=== PATIENT | female | born 1930 | race Caucasian/White ===

== ENCOUNTER 2016-08-02 09:11 | Inpatient (IN) ==
[2016-08-02] MEDS ORDERED: NS 1,000 ML IV ONE (09:38)
[2016-08-02 09:46] LABS: MANUAL DIFF NEEDED? NO
[2016-08-02 09:49] LABS: BASO% 0.1 % (0.0-0.8); EOS# 0.02 X1000 (0.0-0.7); EOS% 0.2 % (0.0-10.0); HEMOGLOBIN 11.8 g/dL (12.0-16.0); IMM GRAN# 0.02 X1000 (0.0-0.04); IMM GRAN% 0.2 % (0.0-0.5); LYMPH% 15.8 % (20.5-51.1); MCH 33.1 PG (27-31); MCHC 33.7 g/dL (33-37); MCV 98.3 FL (81-99); MONO# 0.85 X1000 (0.11-0.59); MONO% 10.3 % (1.7-9.3); MPV 12.7 FL (7.4-10.4); NEUT% 73.4 % (42.2-75.2); PLT 196 X1000 (130-400); RBC 3.56 XMIL (4.2-5.4)
[2016-08-02 10:14] LABS: POTASSIUM 3.7 mmol/L (3.5-5.1); TOTAL BILIRUBIN 0.42 mg/dL (0.20-1.00); TOTAL PROTEIN 7.2 g/dL (6.3-8.3)
--- NOTE | 2016-08-02 10:36 | Diag Imaging Result Document ---
PROCEDURE NAME: CHEST-PORTABLE - 08/02/2016 PORTABLE CHEST X-RAY: COMPARISON: 07/22/2015. FINDINGS: Stable borderline cardiomegaly. Stable calcified granuloma in the left lung base. There is some linear infiltrate or atelectasis in the right lung apex. Otherwise, no infiltrates. IMPRESSION: Improved lung volumes. Linear atelectasis or infiltrate in the right apex. No significant change from prior.
[2016-08-02 10:43] LABS: URINE SOURCE CATH
[2016-08-02 10:48] LABS: BILIRUBIN URINE NEGATIVE (NEGATIVE); BLOOD URINE MODERATE (NEGATIVE); GLUCOSE URINE NEGATIVE (NEGATIVE); LEUKOCYTES URINE LARGE (NEGATIVE); NITRITE URINE NEGATIVE (NEGATIVE); PROTEIN URINE 300 mg/dL (NEGATIVE); SP GRAVITY URINE 1.014; TURBIDITY URINE TURBID (CLEAR); UROBILINOGEN URINE NORMAL (NORMAL)
[2016-08-02 10:59] LABS: UR EPITHELIAL CELLS <10 /HPF (<10); URINE BACTERIA 4+ /HPF; URINE MICRO REVIEW NEEDED? YES; URINE RBC TNTC /HPF (<10); URINE WBC TNTC /HPF (<10)
[2016-08-02 11:04] LABS: UR AMPHETAMINES QUAL NONE DETECTED (NONE DETECT); UR BARBITUATES QUAL NONE DETECTED (NONE DETECT); UR BENZODIAZEPIN QUAL NONE DETECTED (NONE DETECT); UR CANNABINOIDS QUAL NONE DETECTED (NONE DETECT); UR COCAINE QUAL NONE DETECTED (NONE DETECT); UR METHADONE QUAL NONE DETECTED (NONE DETECT); UR OPIATES QUAL NONE DETECTED (NONE DETECT); UR OXYCODONE QUAL NONE DETECTED (NONE DETECT); UR PCP QUAL NONE DETECTED (NONE DETECT)
[2016-08-02] MEDS ORDERED: NS 500 ML IV ONE (11:18)
[2016-08-02 11:20] LABS: COLOR YELLOW
[2016-08-02 11:21] LABS: URINE CASTS NONE SEEN; URINE CRYSTALS NONE SEEN; URINE SMALL ROUND CELLS NONE SEEN
[2016-08-02 11:22] LABS: URINE CULTURE NEEDED? YES
[2016-08-02] MEDS ORDERED: ZOFRAN IV PRN (11:29)
[2016-08-02] MEDS ORDERED: DILAUDID IM PRN (11:29)
--- NOTE | 2016-08-02 11:32 | PROVIDER DOCUMENTATION ---
This chart was entered by Riddhi Juan Scribe, acting as scribe for Gaby Alcazar MD. HPI-General Adult - General Chief Complaint: Weakness Stated Complaint: failure to thrive Time Seen by Provider: 08/02/16 09:34 Source: patient Allergies/Adverse Reactions: Patient Allergies Allergy/AdvReac Type Severity Reaction Status Date / Time No Known Allergies Allergy Verified 08/02/16 11:25 Home Medications: Home Medication List Medication Instructions Recorded Confirmed Last Taken Type Anastrozole 1 mg PO DAILY 06/19/15 12/25/15 08/10/15 07:00 History Carvedilol 3.125 mg PO BID 07/07/15 12/25/15 08/10/15 07:00 History Dexlansoprazole [Dexilant] 60 mg PO DAILY 07/07/15 12/25/15 08/10/15 07:00 History Clonidine [Catapres] 0.1 mg PO DAILY 12/25/15 12/25/15 Unknown History Promethazine [Phenergan] 25 mg PO DAILY 12/25/15 12/25/15 Unknown History Losartan Potassium 50 mg PO BID 08/02/16 08/02/16 Unknown History Meclizine [Antivert] 12.5 mg PO DAILY 08/02/16 08/02/16 Unknown History - History of Present Illness -Gen Adult Nature of Presenting Problems: 85 y/o F presents to ED per EMS. 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 States on July 21 has stopped giving to pt to get her off them. Pt was prescribed Clonidine 0.1mg as needed for pt anxiety. States did well for couple days after but the past 3 days pt has increasingly got worse with altered mental status/confusion/ not eating. Also complains of strong urine smell poss UTI. Pt does have hx of Dementia. Denies N/V. Location of Pain/Injury: reports: none Pain Radiation: reports: no radiation Quality of Pain: reports: none Severity: reports: mild Onset/Duration: reports: just prior to arrival Timing: reports: still present Context/Activities at Onset: reports: light activity Associated Symptoms: reports: other (AMS/CONFUSION/NOT EATING). denies: chest pain, cough, fever/chills, sinus congestion/drainage, nausea, shortness of breath, vomiting Similar Symptoms Previously?: No Recently seen or treated by another doctor?: Yes Review of Systems - Adult - REVIEW OF SYSTEMS - ADULT ROS:: ROS per family Constitutional: reports: other (decreased appetite). denies: chills, fever Ears, Nose, Mouth & Throat: denies: ear pain, throat pain Cardiovascular: denies: chest pain, palpitations Respiratory: denies: cough, shortness of breath Gastrointestinal: denies: abdominal pain, diarrhea, nausea, vomiting Genitourinary: reports: other (stong smelling urine). denies: incontinence Musculoskeletal: denies: bone pain, back pain Neurological: reports: other (ams/confusion). denies: dizziness/vertigo, headache/migraines, syncope Past History - Adult - PAST MEDICAL HISTORY-ADULT Review of Records: reports: Old Records Reviewed, Nursing Assessment Review Major Childhood Illnesses: reports: denies history Cardiovascular: reports: cardiac disease, HTN Respiratory: reports: COPD Gastrointestinal: reports: GERD Obstetrical/Gynecological: reports: denies history Musculoskeletal: Neurological: reports: dementia Endocrine/Immune: reports: denies history Other Conditions: reports: denies history - PRIOR SURGERIES/PROCEDURES Surgical/Procedure History: reports: appendectomy, cholecystectomy, hysterectomy - PRIOR HOSPITALIZATIONS Prior Hospitalizations: reports: none - IMMUNIZATION STATUS Childhood Immunizations: See Nurse Assessment Flu Vaccine: See Nurse Assessment - FAMILY HISTORY Family History: CAD over 55 yo, HTN - SOCIAL HISTORY Smoking: non-smoker Substance Use: denies Physical Exam-General - CONSTITUTIONAL General Appearance: thin, slow to respond, other (altered) - EYES Eyes: pink conjunctivae - HEAD, EARS, NOSE, MOUTH & THROAT HENMT: normocephalic/atraumatic, other (dry mucous membranes) - RESPIRATORY Respiratory: chest non-tender, lungs clear, normal breath sounds - CARDIOVASCULAR Cardiovascular: normal peripheral pulses, regular rate, rhythm, no edema - GASTROINTESTINAL (ABDOMEN) Abdominal Exam: normal bowel sounds, non tender, soft - MUSCULOSKELETAL Back Exam: normal inspection, no CVA tenderness, no vertebral tenderness Extremity: normal range of motion, non-tender - SKIN Integumentary: normal color, normal turgor, warm/dry - NEUROLOGIC Neurologic: grossly normal Progress - PLAN OF CARE/RESULTS Progress/Plan/Lab Results: Vital Signs - 8 hr 08/02/16 09:33 Temperature 97.6 F Pulse Rate 83 Respiratory Rate 18 Blood Pressure 113/77 O2 Sat by Pulse Oximetry 96 Orders Category Date Time Status CHEST-PORTABLE [RAD] Stat Exams 08/02/16 09:37 Ordered CBC WITH ELECTRONIC DIFF [HEME] Stat Lab 08/02/16 09:18 Received CMP [COMPREHENSIVE METABOLIC PANEL] [CHEM] Stat Lab 08/02/16 09:43 Ordered URINALYSIS W/POSS RFLX CULT [URINALYSIS] Stat Lab 08/02/16 09:36 Uncollected URINE DRUG SCREEN Stat Lab 08/02/16 09:36 Uncollected 0.9% Sodium Chloride Inj [Ns] 1,000 ml Med 08/02/16 09:38 Active IV 150 mls/hr PLAN: LABS, CHEST XRAY, URINE, FLUIDS, MONITOR PT Result Diagrams: 08/02/16 09:18 08/02/16 09:18 - XRAY 1 XRAY: Bilateral XRAY Study: Chest Impression: Abnormal (Improved lung volumes. linear atelectasis or inflitrate in right apex, no change) XRAY Interpretation: see impression- (radiologist) - CONSULTS/PCP/HOSPITALIST Notification #1 *Consult/PCP/Hospitalist*: (pcp) Time Discussed: 11:25 Consult Disposition: Admit Departure - Departure Time of Disposition Decision: 11:27 DIAGNOSIS: Dehydration Acute renal failure Qualifiers: Acute renal failure type: unspecified Qualified Code(s): N17.9 - Acute kidney failure, unspecified Disposition: ADMITTED INPATIENT 09 Certified Medical Emergency: Emergent Condition: Stable This chart was documented by the indicated scribe, (Riddhi Juan Scribe) and accurately reflects the services I performed and decisions made by me, Gaby Alcazar MD, as attested by the provider's signature.
[2016-08-02] MEDS ORDERED: LEVAQUIN 750 MG/D5W 750 MG/150 ML IVPB IV ONE (11:33)
[2016-08-02 11:51] LABS: ALLEN TEST YES; BE -11.2 mmoll (-3.0-3.0); BLOOD TYPE ARTERIAL; DRAW SITE R RADIAL; METHB 2.2 % (0.0-1.5); MODALITY ROOM AIR; O2(CT) 14.2 mL/dL (15.0-23.0); PCO2(98.6) 25 mmHg (35-45); PO2(98.6) 77 mmHg (60-100); SAMPLE BLOOD; SAO2 97.4 % (95.0-100.0); THB 10.7 g/dL (11.5-17.4); pH(98.6) 7.33 (7.35-7.45)
[2016-08-02] MEDS: NS 1,000 ML IV SCH (16:30)
[2016-08-02] MEDS: TYLENOL PO PRN ×2 (16:39→22:43)
--- NOTE | 2016-08-02 21:53 | HISTORY AND PHYSICAL ---
CHIEF COMPLAINT: 1. Altered mental status. 2. Confusion. 3. Not eating. HISTORY OF PRESENT ILLNESS: She is an 85-year-old white female, who apparently was not taking the hydrocodone since July 21 by . Since then, patient has been acting weird, confused, not eating, disheveled. The reason was not clear why Dr. Hayes stopped giving the pain medications. Apparently the patient was given Butrans 10 mcg/hour patch every week on 07/20/2015. Somehow, family brought to the emergency room by ambulance. In the ER patient was seen by Dr. Alcazar. Patient was dehydrated, BUN 76, creatinine 4. Basically, admitted to the hospital for dehydration and further workup. Perry catheter was placed. She is making good urine. Complains of dysuria. She was also treated for UTI. As a result, the patient has been hospitalized. Chest x-ray was stable. PAST MEDICAL HISTORY: Breast cancer, stage I, left breast, lumpectomy, followed by chemo by Dr. Melgar. Closed fracture of C2. Cystocele. Dementia 20/30 by mini-mental examination. Esophageal reflux disease. Hyperlipidemia. Hypertension. Osteoporosis. Osteoarthritis. Vitamin B12 deficiency. PAST SURGICAL HISTORY: Cholecystectomy. Hysterectomy. Bilateral cataract surgery. Colon resection by Dr. Jenkins. Urethral stenosis, status post dilatation by Dr. Beach. MEDICATIONS: Anastrazole mg daily. Dexilant 40 mg daily. Coreg 3.125 p.o. b.i.d. Clonidine 0.1 daily. Phenergan 25 as needed. Losartan 50 p.o. b.i.d. Clonidine as needed. Linzess 145 mcg daily. Aricept 5 mg daily. Blakely used to be by Dr. Hayes, which has been stopped. ALLERGIES: Norvasc. SOCIAL HISTORY: , 8 children. Lives in [place]. No smoking. No alcohol. No drug abuse. FAMILY HISTORY: Father of complication of broken hip. Mom of cancer of stomach. HEALTH MAINTENANCE: Flu vaccine 2015, pneumococcal 2009, mammography 2014, last colonoscopy 2011. Last mammography 05/31/2016. REVIEW OF SYSTEMS: HEENT: Patient is totally confused, but denies any headache or dizziness. Neck: No neck pain. Cardiopulmonary: No chest pain, shortness of breath, PND , orthopnea. GI: No nausea, vomiting, abdominal pain. Complains of lower abdominal pain, dysuria. Extremities: No swelling of feet. Neurologic: No obvious weakness or seizures. PHYSICAL EXAMINATION: VITAL SIGNS: Temperature 97 degrees, pulse is 80, respirations 87, blood pressure is 127/75. 5 feet 2. 131 pounds. HEENT: Atraumatic, normocephalic. Pupils equal, reactive to light. TMs are normal. Nose and throat within normal limits. NECK: Supple. No lymphadenopathy. No goiter. CHEST: Bilateral air entry. No rales, no wheezing. HEART: Sounds are regular. ABDOMEN: Belly is soft, nontender. Good bowel sounds. No masses palpable. EXTREMITIES: No peripheral edema, cyanosis, clubbing. NEUROLOGICAL: No neurological deficits. INVESTIGATIONS: CBC: White cell count 8.2, hematocrit 35, platelets 196,000. ABG: PH is 7.33, pCO2 25, PO2 77. SMA7: Sodium 137, potassium 3.7, chloride 96, BUN 76, creatinine 4, glucose 108. Urinalysis positive for infection. Urine toxic screen is negative. Chest x-ray was negative. ASSESSMENT AND PLAN: 1. An 85-year-old white female, admitted to the hospital with acute metabolic encephalopathy due to dehydration and urinary tract infection. Plan is IV Levaquin 250 once a day. Perry catheter. IV fluids. Ultrasound of the renals. Follow up on complete blood count and basic metabolic panel. 2. Deep venous thrombosis and gastrointestinal prophylaxis with Lovenox and Protonix. 3. Dementia, on Aricept 10. 4. Hypertension, on Coreg, clonidine and losartan. 5. Carcinoma of breast on left side, on anastrozole. 6. Slowly reconcile home medicines. Discussed with the family at bedside and follow up. cc: Rafy Herrera MD [facility]ay
[2016-08-03] MEDS ORDERED: ATIVAN IM ONE (01:49)
[2016-08-03] MEDS: NS 1,000 ML IV SCH (05:00)
[2016-08-03 07:06] LABS: MANUAL DIFF NEEDED? NO
[2016-08-03 07:08] LABS: BASO% 0.4 % (0.0-0.8); EOS# 0.06 X1000 (0.0-0.7); EOS% 0.9 % (0.0-10.0); HEMATOCRIT 31.6 % (37.0-47.0); HEMOGLOBIN 10.4 g/dL (12.0-16.0); LYMPH# 1.77 X1000 (1.2-3.4); LYMPH% 25.8 % (20.5-51.1); MCH 33.2 PG (27-31); MCHC 32.9 g/dL (33-37); MONO# 0.96 X1000 (0.11-0.59); MPV 12.1 FL (7.4-10.4); NEUT% 58.9 % (42.2-75.2); PLT 154 X1000 (130-400); RBC 3.13 XMIL (4.2-5.4)
[2016-08-03 07:22] LABS: CALCIUM 8.3 mg/dL (8.8-10.2); POTASSIUM 3.4 mmol/L (3.5-5.1)
--- NOTE | 2016-08-03 09:33 | PROGRESS NOTE ---
DATE: 08/03/2016 SUBJECTIVE: The patient was agitated, restless last night. There was no sleep. Patient subsequently was given lorazepam 0.5 mg one dose. She has been sleeping at this time. She is very belligerent and agitated. REVIEW OF SYSTEMS: The patient is sleeping. Unable to obtain. Discussed with the family at the bedside. Apparently, she was seen by Dr. Parmar on 07/19/2016. He discontinued Durant, changed to Butrans patch. Subsequently the insurance did not pay the medication. OBJECTIVE: Vital Signs: On examination, she is afebrile and blood pressure is 128/64, 100% oxygen. She is sleeping. Chest: Clear. Heart: Sounds are regular. Abdomen: Belly is soft, nontender. Extremities: No peripheral edema, cyanosis, clubbing. INVESTIGATIONS: CBC: White cell count 6.8, hematocrit 31, MCV 101, platelet 154. SMA-7: Sodium 142, potassium 3.4, chloride 109, BUN 62, creatinine 2.6, calcium 8.3. MICROBIOLOGY: Culture is showing gram-negative rods. ASSESSMENT AND PLAN: 1. An 85-year-old white female, admitted to the hospital with altered mental status due to metabolic encephalopathy, probably withdrawal from pain medications. We will use judiciously. 2. Agitation. Ativan as needed. 3. Gastrointestinal prophylaxis with intravenous Protonix. 4. Deep vein thrombosis prophylaxis with subcutaneous Lovenox. 5. Acute renal failure. Kidney injury. Probably dehydration. Continue on intravenous fluids. Ultrasound of the renals. She already had a Perry catheter placed. 6. Urinary tract infection. Follow up on culture and sensitivity. Currently on Levaquin 250 intravenous once a day. Discussed with the patient and the family about the care plan, and will keep her over the weekend. DOCUMENTATION TIME: 25 minutes. cc: Rafy Herrera MD
--- NOTE | 2016-08-03 11:21 | Diag Imaging Result Document ---
PROCEDURE NAME: US RENAL 2 (RETROPER) COMPLETE - 08/03/2016 RENAL ULTRASOUND: COMPARISON: 05/03/2015. FINDINGS: The left kidney is partially obscured as the patient cannot tolerate pressure from the probe. There are a couple of right renal cysts with the largest measuring up to 3.4 cm in the greatest dimension. There is also a 2.8 cm left renal cyst. The kidneys are grossly normal in echotexture, otherwise. No hydronephrosis or solid mass is identified. There is a Perry catheter in the urinary bladder and the bladder is only slightly distended. It is grossly unremarkable, otherwise. IMPRESSION: Bilateral simple-appearing renal cysts as described.
[2016-08-03] MEDS: POTASSIUM CHLORIDE 20 MEQ/SWI 20 MEQ/100 ML IVPB IV SCH ×2 (15:47→18:26)
[2016-08-03] MEDS: LOVENOX SUBQ SCH (20:10)
[2016-08-04] MEDS: NS 1,000 ML IV SCH ×2 (00:45→17:40)
[2016-08-04] MEDS: ATIVAN IV PRN ×3 (01:50→21:35)
[2016-08-04 07:37] LABS: MANUAL DIFF NEEDED? NO
[2016-08-04 07:44] LABS: BASO% 0.8 % (0.0-0.8); EOS% 3.2 % (0.0-10.0); HEMATOCRIT 31.5 % (37.0-47.0); HEMOGLOBIN 10.1 g/dL (12.0-16.0); IMM GRAN# 0.02 X1000 (0.0-0.04); IMM GRAN% 0.3 % (0.0-0.5); LYMPH# 1.83 X1000 (1.2-3.4); LYMPH% 29.5 % (20.5-51.1); MCH 33.2 PG (27-31); MCHC 32.1 g/dL (33-37); MCV 103.6 FL (81-99); MONO# 0.78 X1000 (0.11-0.59); MONO% 12.6 % (1.7-9.3); MPV 12.7 FL (7.4-10.4); NEUT% 53.6 % (42.2-75.2); PLT 144 X1000 (130-400); RBC 3.04 XMIL (4.2-5.4)
[2016-08-04 08:08] LABS: CALCIUM 9.3 mg/dL (8.8-10.2); POTASSIUM 4.2 mmol/L (3.5-5.1)
--- NOTE | 2016-08-04 11:46 | PROGRESS NOTE ---
DATE: 08/04/2016 SUBJECTIVE: The patient is alert. She is more conversant. Still somewhat demanding but overall more at herself and seems to be, I suspect, near her baseline. She is talking with her relatives who are in the room with her. She says she still feels bad overall. OBJECTIVE: Afebrile, pulse 90, respirations 17, blood pressure 131/64, O2 saturation is 97% to 98% on room air. Cardiovascular: Regular rate and rhythm. Lungs: CTA. Extremities: No calf tenderness, cords or edema. Neurologic: The patient is elderly, mildly confused, not combative, answers some questions, appears mildly demented. DIAGNOSTIC DATA: Microbiology shows urine culture growing out E. coli, intermediate sensitivity to the Levaquin she is on. It is sensitive to Macrobid. White count is 6.2, hemoglobin 10.1, platelets 144, neutrophils 53, lymphocytes 29. Sodium is 145, potassium 4.2, chloride 114, CO2 is 18, BUN is 53, creatinine 1.7, glucose 73, calcium 9.3 ASSESSMENT: 1. Mental status change, suspect multifactorial. Grew out urosepsis with dementia and metabolic encephalopathy associated with dehydration. 2. Acute kidney injury, thought related to dehydration. 3. Escherichia coli urinary tract infection. 4. Dementia, on Aricept. 5. Hypertension. 6. History of left-sided carcinoma of the breast. PLAN: At this time, again change Levaquin to Macrobid. Continue IV hydration, and she seems to be improving with that, with low dose p.r.n. Ativan as required. Continue Aricept, Coreg, clonidine, losartan. Continue Perry catheter and encourage p.o. intake. We will follow her labs. cc: MD Rafy Nicholson MD
[2016-08-04] MEDS: TYLENOL PO PRN (12:55)
[2016-08-04] MEDS: MACROBID PO SCH ×2 (12:57→21:35)
[2016-08-04] MEDS ORDERED: LEVAQUIN 250 MG/D5W 250 MG/50 ML IVPB IV SCH (14:00)
[2016-08-04] MEDS: DILAUDID IV PRN (16:31)
[2016-08-04] MEDS: COREG PO SCH (21:35)
[2016-08-04] MEDS: LOVENOX SUBQ SCH (21:35)
[2016-08-04] MEDS: COZAAR PO SCH (21:35)
[2016-08-05] MEDS: NS 1,000 ML IV SCH ×2 (02:10→15:36)
[2016-08-05 07:00] LABS: MANUAL DIFF NEEDED? NO
[2016-08-05 07:19] LABS: BASO% 1.1 % (0.0-0.8); EOS# 0.25 X1000 (0.0-0.7); EOS% 5.3 % (0.0-10.0); HEMATOCRIT 32.3 % (37.0-47.0); HEMOGLOBIN 10.6 g/dL (12.0-16.0); LYMPH% 31.8 % (20.5-51.1); MCH 33.4 PG (27-31); MCHC 32.8 g/dL (33-37); MCV 101.9 FL (81-99); MONO% 10.6 % (1.7-9.3); MPV 11.9 FL (7.4-10.4); NEUT% 51.2 % (42.2-75.2); PLT 154 X1000 (130-400); RBC 3.17 XMIL (4.2-5.4)
[2016-08-05 07:38] LABS: CALCIUM 9.1 mg/dL (8.8-10.2); POTASSIUM 3.9 mmol/L (3.5-5.1)
[2016-08-05] MEDS: DILAUDID IV PRN (07:56)
[2016-08-05] MEDS ORDERED: DEXILANT PO SCH (09:00)
--- NOTE | 2016-08-05 09:46 | PROGRESS NOTE ---
DATE: 08/05/2016 SUBJECTIVE: Patient remains confused, especially at night. She is sleeping well now. Daughter is in the room with her. OBJECTIVE: Vital Signs: Afebrile, pulse 74, respirations 20, blood pressure 162/79, O2 saturation 98-99% with 2 L. CV: RRR. Lungs: CTA. Extremities: No calf tenderness, cords, or edema. Laboratory Data: Show a sodium of 145, potassium 3.9, chloride 113, CO2 19, BUN 37, creatinine 1.2, glucose 81. White count 4.71, hemoglobin 10.6, hematocrit 32.3, MCV 101.9, platelets 154,000. Urine culture again growing out E. coli, sensitive to Macrobid. ASSESSMENT: 1. Mental status change thought multifactorial, possibly related to urosepsis on top of dementia and metabolic encephalopathy with dehydration. 2. Acute kidney injury, thought related to dehydration, resolving. 3. Escherichia coli urinary tract infection, on Macrobid. 4. Dementia. 5. Hypertension. 6. History of left-sided breast carcinoma. PLAN: Continue oral Macrobid. Continue low-dose IV fluids, backing off on this slightly. Continue blood pressure control with her Coreg, Justus Ellis. Continue p.r.n. Ativan. Notably, patient is not on Aricept. She had been tried on that in the past but that was stopped as she did not do well with it. cc: MD Rafy Nicholson MD
[2016-08-05] MEDS: ATIVAN IV PRN ×2 (14:00→21:55)
[2016-08-05] MEDS ORDERED: HALDOL IV ONE (15:54)
[2016-08-05] MEDS: COREG PO SCH (17:39)
[2016-08-05] MEDS: ARIMIDEX PO SCH (17:39)
[2016-08-05] MEDS: MACROBID PO SCH (17:39)
[2016-08-05] MEDS: DEXILANT PO SCH (17:40)
[2016-08-05] MEDS: COZAAR PO SCH (17:40)
[2016-08-05] MEDS: LOVENOX SUBQ SCH (20:35)
[2016-08-06] MEDS: NS 1,000 ML IV SCH ×2 (04:57→11:52)
[2016-08-06] MEDS: ATIVAN IV PRN ×3 (05:50→19:53)
[2016-08-06] MEDS: COREG PO SCH ×3 (05:56→20:02)
[2016-08-06] MEDS: MACROBID PO SCH (05:56)
[2016-08-06] MEDS: CATAPRES PO SCH ×2 (05:56→10:00)
[2016-08-06] MEDS: COZAAR PO SCH ×3 (05:56→20:02)
[2016-08-06 06:38] LABS: MANUAL DIFF NEEDED? NO
[2016-08-06 07:09] LABS: BASO% 0.6 % (0.0-0.8); EOS# 0.18 X1000 (0.0-0.7); EOS% 3.6 % (0.0-10.0); HEMOGLOBIN 9.7 g/dL (12.0-16.0); LYMPH# 1.16 X1000 (1.2-3.4); MCH 32.8 PG (27-31); MCHC 32.3 g/dL (33-37); MCV 101.4 FL (81-99); MONO# 0.39 X1000 (0.11-0.59); MONO% 7.7 % (1.7-9.3); MPV 11.3 FL (7.4-10.4); NEUT% 65.1 % (42.2-75.2); PLT 151 X1000 (130-400); RBC 2.96 XMIL (4.2-5.4)
[2016-08-06 07:27] LABS: AGAP 15; BUN 25 mg/dL (8-22); CALCIUM 8.5 mg/dL (8.8-10.2); CHLORIDE 115 mmol/L (98-107); COSMO 304; POTASSIUM 3.8 mmol/L (3.5-5.1); SODIUM 151 mmol/L (136-145); TCO2 21 mmol/L (25-35)
[2016-08-06] MEDS ORDERED: PRIMAXIN 1,000 MG in NS 250 ML IV SCH (08:45)
[2016-08-06] MEDS ORDERED: INVANZ 0.5 GM in NS 50 ML IV SCH (09:00)
[2016-08-06] MEDS: DEXILANT PO SCH (09:59)
[2016-08-06] MEDS: ARIMIDEX PO SCH (09:59)
[2016-08-06] MEDS: INVANZ 1 GM/NS 1 GM/50 ML IVPB IV SCH (11:15)
[2016-08-06] MEDS: D5 1/2 NS + KCL 10 MEQ 1,000 ML IV SCH (11:51)
[2016-08-06] MEDS: DILAUDID IV PRN ×2 (14:10→21:11)
--- NOTE | 2016-08-06 19:09 | PROGRESS NOTE ---
DATE: 08/06/2016 INTERVAL HISTORY: The patient is obtunded, sedated with anxiolytics not eating well. Discussed with the family at the bedside. REVIEW OF SYSTEMS: Not able to be obtained. PHYSICAL EXAMINATION: Vital Signs: Afebrile, blood pressure is 160/80 on 2 L of oxygen, 92%. HEENT Exam: Atraumatic, normocephalic. Oral thrush present. Neck: Supple. Chest: Clear. Heart: Heart sounds are regular. Abdomen: Belly is soft, nontender. Good bowel sounds. Extremities: No peripheral edema, cyanosis, or clubbing. Neurologic: No focal deficits. INVESTIGATIONS: White cell count 5, hematocrit 30. MCV 101. Platelet count 151,000. SMA 7: Sodium 150, potassium 3.8, chloride 115. BUN 25, creatinine 0.8, glucose 95. Calcium 8.5. Urine cultures positive for Escherichia coli, extended spectrum beta-lactamase positive. ASSESSMENT AND PLAN: 1. Altered mental status, not improving after dehydration. 2. Acute kidney injury, resolving after hydration. Ultrasound is negative. 3. Hyponatremia and dehydration. Change the IV fluids to D5 half-normal saline at 80 mL an hour. 4. Deep venous thrombosis Prophylaxis with Lovenox. 5. Extended spectrum beta-lactamase Escherichia coli and changing the antibiotics IV Invanz once a day. DISPOSITION: Make sure she will eat and tolerate the medicines by mouth. Consider rehab placement once her clinical situation improves. DOCUMENTATION TYPE: Is 35 minutes. cc: Rafy Herrera MD
[2016-08-06] MEDS: LOVENOX SUBQ SCH (20:01)
[2016-08-07] MEDS: D5 1/2 NS + KCL 10 MEQ 1,000 ML IV SCH ×2 (01:56→15:27)
[2016-08-07] MEDS: NS 1,000 ML IV SCH ×2 (01:56→15:27)
[2016-08-07] MEDS: ATIVAN IV PRN (06:31)
[2016-08-07 07:08] LABS: MANUAL DIFF NEEDED? NO
[2016-08-07 07:31] LABS: AGAP 12; BUN 17 mg/dL (8-22); CALCIUM 8.2 mg/dL (8.8-10.2); CHLORIDE 111 mmol/L (98-107); COSMO 291; POTASSIUM 3.6 mmol/L (3.5-5.1); SODIUM 145 mmol/L (136-145); TCO2 22 mmol/L (25-35)
[2016-08-07 07:39] LABS: BASO% 0.9 % (0.0-0.8); EOS# 0.18 X1000 (0.0-0.7); EOS% 3.3 % (0.0-10.0); HEMATOCRIT 29.7 % (37.0-47.0); HEMOGLOBIN 9.6 g/dL (12.0-16.0); LYMPH# 1.55 X1000 (1.2-3.4); LYMPH% 28.6 % (20.5-51.1); MCH 32.5 PG (27-31); MCHC 32.3 g/dL (33-37); MCV 100.7 FL (81-99); MONO# 0.63 X1000 (0.11-0.59); MONO% 11.6 % (1.7-9.3); MPV 11.3 FL (7.4-10.4); NEUT% 55.6 % (42.2-75.2); PLT 153 X1000 (130-400); RBC 2.95 XMIL (4.2-5.4)
[2016-08-07] MEDS: DILAUDID IV PRN (07:54)
[2016-08-07] MEDS: INVANZ 1 GM/NS 1 GM/50 ML IVPB IV SCH (09:20)
[2016-08-07] MEDS: ARIMIDEX PO SCH (09:20)
[2016-08-07] MEDS: DEXILANT PO SCH (09:21)
[2016-08-07] MEDS: COZAAR PO SCH ×2 (09:21→23:18)
[2016-08-07] MEDS: CATAPRES PO SCH (09:21)
[2016-08-07] MEDS: COREG PO SCH ×2 (09:21→23:18)
[2016-08-07] MEDS ORDERED: STERILE WATER INJ. INJ PRN (19:28)
--- NOTE | 2016-08-07 19:39 | PROGRESS NOTE ---
DATE: 08/07/2016 INTERVAL HISTORY: Patient was obtunded again. She ate some lunch and since then she was belligerent and combative requiring Ativan and Dilaudid. I discussed with family members at bedside. REVIEW OF SYSTEMS: None reported. PHYSICAL EXAMINATION: Vital Signs: Stable. Blood pressure is running high. HEENT: Dry mucous membranes. Chest: Clear. Heart: Sounds are regular. Abdomen: Belly is soft, nontender, good bowel sounds. Perry catheter was placed. INVESTIGATIONS: White cell count 5.4, hematocrit 29, platelets 153,000, SMA 7, sodium 145, potassium 3.6, chloride 111, BUN 17, creatinine 0.8, glucose 108, calcium 8.2. ASSESSMENT AND PLAN: 1. Dehydration improved, hypernatremic after changing D5 half-normal saline. 2. Urinary tract infection ESBL. Continue on Invanz. 3. DVT and GI prophylaxis. 4. Agitation. Discontinue Dilaudid. We will use restraints as needed. 5. Discontinue Perry catheter. 6. Disposition. Rehabilitation placement. We will slowly wake her up. If she is combative, we will use as needed Seroquel or Geodon. Discussed with the family members at bedside. 7. Follow up. LEVEL OF DOCUMENTATION: 25 minutes. cc: Rafy Herrera MD
[2016-08-07] MEDS: GEODON IM PRN (20:09)
[2016-08-07] MEDS: LOVENOX SUBQ SCH ×2 (20:46→23:24)
[2016-08-08] MEDS: D5 1/2 NS + KCL 10 MEQ 1,000 ML IV SCH ×3 (03:11→18:42)
[2016-08-08 06:36] LABS: MANUAL DIFF NEEDED? NO
[2016-08-08 06:50] LABS: BASO% 0.3 % (0.0-0.8); EOS# 0.25 X1000 (0.0-0.7); EOS% 3.7 % (0.0-10.0); HEMATOCRIT 31.7 % (37.0-47.0); HEMOGLOBIN 10.6 g/dL (12.0-16.0); LYMPH# 1.63 X1000 (1.2-3.4); LYMPH% 24.2 % (20.5-51.1); MCHC 33.4 g/dL (33-37); MCV 98.8 FL (81-99); MONO# 0.81 X1000 (0.11-0.59); MPV 11.2 FL (7.4-10.4); NEUT% 59.8 % (42.2-75.2); PLT 175 X1000 (130-400); RBC 3.21 XMIL (4.2-5.4)
[2016-08-08 07:00] LABS: AGAP 9; BUN 8 mg/dL (8-22); CALCIUM 7.9 mg/dL (8.8-10.2); CHLORIDE 108 mmol/L (98-107); COSMO 286; POTASSIUM 3.3 mmol/L (3.5-5.1); SODIUM 144 mmol/L (136-145); TCO2 27 mmol/L (25-35)
--- NOTE | 2016-08-08 08:24 | Diag Imaging Result Document ---
PROCEDURE NAME: HEAD W/WO CONTRAST - 08/08/[address] WITHOUT AND WITH INTRAVENOUS CONTRAST: A CT dose reduction protocol was used. COMPARISON: 07/21/2015. FINDINGS: The ventricles and sulci are normal in size and contour. There may be some worsening in the periventricular white matter hypodensity compatible with chronic microvascular disease. No intracranial mass or hemorrhage. The skull is intact. The sinuses, mastoids, and middle ears are clear. No abnormal contrast enhancement. IMPRESSION: Perhaps minimal worsening in the periventricular white matter chronic microvascular disease. No acute abnormality. [facility]
--- NOTE | 2016-08-08 09:05 | PROGRESS NOTE ---
DATE: 08/08/2016 SUBJECTIVE: Despite adequate hydration and treating for UTI, mental status has not improved. The patient is still obtunded. Patient was seen yesterday evening and this morning with the family members. She is unresponsive. Pupils equal, reacting to light. Able to move all the extremities. Dilaudid was discontinued. Initiated Geodon as needed. REVIEW OF SYSTEMS: None reported. Perry catheter was taken out. PHYSICAL EXAMINATION: Vital Signs: Afebrile. Vitals are stable. HEENT Examination: Pupils equal, reacting to light. Dry mucous membranes. Chest: Clear. Heart: Heart sounds are regular. Abdomen: Belly is soft, nontender. Good bowel sounds. Extremities: No edema. Neurological Examination: Obtunded. No obvious deficits noted. INVESTIGATIONS: CBC: White cell count 6.7, hematocrit 32, platelets 175,000. SMA 7: Sodium 140, potassium 3.3, chloride 108, BUN 8, creatinine 0.6, glucose 112, calcium 7.9. ASSESSMENT AND PLAN: 1. Altered mental status. No improvement despite correction of hypernatremia. 2. Urinary tract infection, extended-spectrum B-lactamase, on Invanz. 3. Hypokalemia. Replace the potassium. 4. Altered mental status. CT head which is unremarkable. 5. Discussed with the family at bedside, also we will initiate advanced directives and we will follow up. 6. Level of documentation at bedside, 35 minutes. cc: Rafy Herrera MD
[2016-08-08] MEDS: ARIMIDEX PO SCH (09:58)
[2016-08-08] MEDS: CATAPRES PO SCH (09:59)
[2016-08-08] MEDS: COZAAR PO SCH (09:59)
[2016-08-08] MEDS: INVANZ 1 GM/NS 1 GM/50 ML IVPB IV SCH (09:59)
[2016-08-08] MEDS: COREG PO SCH (09:59)
[2016-08-08] MEDS: DEXILANT PO SCH (09:59)
[2016-08-08] MEDS: NS 1,000 ML IV SCH (10:31)
[2016-08-08] MEDS: ATIVAN IV PRN (20:47)
[2016-08-08] MEDS: LOVENOX SUBQ SCH (20:48)
[2016-08-09] MEDS: COREG PO SCH ×3 (05:40→21:11)
[2016-08-09] MEDS: COZAAR PO SCH ×3 (05:41→21:11)
[2016-08-09 06:44] LABS: MANUAL DIFF NEEDED? NO
[2016-08-09 06:56] LABS: BASO% 0.4 % (0.0-0.8); EOS% 2.8 % (0.0-10.0); HEMATOCRIT 30.4 % (37.0-47.0); HEMOGLOBIN 10.4 g/dL (12.0-16.0); LYMPH# 1.58 X1000 (1.2-3.4); LYMPH% 22.3 % (20.5-51.1); MCH 32.9 PG (27-31); MCHC 34.2 g/dL (33-37); MCV 96.2 FL (81-99); MONO# 0.86 X1000 (0.11-0.59); MONO% 12.1 % (1.7-9.3); NEUT% 62.4 % (42.2-75.2); PLT 184 X1000 (130-400); RBC 3.16 XMIL (4.2-5.4)
[2016-08-09] MEDS: D5 1/2 NS + KCL 10 MEQ 1,000 ML IV SCH (07:34)
[2016-08-09 07:40] LABS: AGAP 11; BUN 5 mg/dL (8-22); CALCIUM 7.7 mg/dL (8.8-10.2); CHLORIDE 105 mmol/L (98-107); COSMO 285; POTASSIUM 2.8 mmol/L (3.5-5.1); SODIUM 144 mmol/L (136-145); TCO2 28 mmol/L (25-35)
[2016-08-09] MEDS: INVANZ 1 GM/NS 1 GM/50 ML IVPB IV SCH (10:31)
[2016-08-09] MEDS: CATAPRES PO SCH (10:31)
[2016-08-09] MEDS: ARIMIDEX PO SCH (10:31)
[2016-08-09] MEDS: LOTRISONE CREAM TOP SCH (10:32)
[2016-08-09] MEDS: DEXILANT PO SCH (10:32)
[2016-08-09] MEDS: POTASSIUM CHLORIDE 20 MEQ/SWI 20 MEQ/100 ML IVPB IV SCH ×2 (12:30→15:30)
[2016-08-09] MEDS ORDERED: NS 500 ML ONE (15:26)
--- NOTE | 2016-08-09 20:35 | PROGRESS NOTE ---
DATE: 08/09/2016 SUBJECTIVE: Mental status slowly improving. CT head is negative. She is talking to family and generally tremulous. REVIEW OF SYSTEMS: Not offering any complaints. OBJECTIVE: Vital signs: Stable. HEENT Examination: Dry mucous membranes. A lot of titubation and smacking of the facial muscles. Neck: Supple. Chest: Clear to auscultation. Heart: Sounds are regular. Abdomen: Belly is soft, nontender. Good bowel sounds. No masses palpable. Lymphatic: No peripheral edema, cyanosis, clubbing. Neurologic: Nonfocal. INVESTIGATIONS: CBC: White cell count 7, hematocrit 30, platelets 184,000. SMA 7, sodium 144, potassium 2.8, chloride 105, BUN 5, creatinine 0.5, glucose 109. ASSESSMENT AND PLAN: 1. Altered mental status is improving. We will use Geodon as needed. 2. E. coli ESBL on Invanz. 3. Hypokalemia. Replace the potassium. 4. Since mental status is improving, we will start mechanical soft diet. 5. Disposition. Family seeking for intermediate placement once she is stable. 6. Increase activity with physical therapy, out of bed with assistance. LEVEL OF DICTATION: 25 minutes. cc: Rafy Herrera MD MTDD
[2016-08-09] MEDS: LOVENOX SUBQ SCH (21:11)
[2016-08-09] MEDS: ATIVAN IV PRN (21:19)
[2016-08-10] MEDS: D5 1/2 NS + KCL 10 MEQ 1,000 ML IV SCH ×2 (05:36→18:30)
[2016-08-10] MEDS: ATIVAN IV PRN ×2 (06:21→22:41)
[2016-08-10] MEDS: COREG PO SCH ×2 (08:37→22:34)
[2016-08-10] MEDS: CATAPRES PO SCH (08:37)
[2016-08-10] MEDS: DEXILANT PO SCH (08:41)
[2016-08-10] MEDS: ARIMIDEX PO SCH (08:41)
[2016-08-10] MEDS: COZAAR PO SCH ×2 (08:41→22:34)
[2016-08-10] MEDS: LOTRISONE CREAM TOP SCH (08:41)
[2016-08-10] MEDS: INVANZ 1 GM/NS 1 GM/50 ML IVPB IV SCH (09:02)
--- NOTE | 2016-08-10 12:00 | PROGRESS NOTE ---
DATE: 08/10/2016 Ms. Mancilla's family is indicating that she be transferred to a rehab when she is discharged. She had E. coli ESBL, and she is on Invanz. Her mental status is slightly improving. CT scan was unremarkable. Potassium was 3.8. Overall condition is unchanged. -4 cc: MD Rafy Perez MD
[2016-08-10] MEDS: LOVENOX SUBQ SCH (22:34)
[2016-08-11] MEDS: D5 1/2 NS + KCL 10 MEQ 1,000 ML IV SCH ×2 (06:20→17:39)
[2016-08-11] MEDS: ATIVAN IV PRN ×3 (06:20→19:13)
[2016-08-11 06:56] LABS: AGAP 9; BUN 4 mg/dL (8-22); CALCIUM 7.5 mg/dL (8.8-10.2); CHLORIDE 105 mmol/L (98-107); COSMO 286; SODIUM 145 mmol/L (136-145); TCO2 31 mmol/L (25-35)
[2016-08-11] MEDS: INVANZ 1 GM/NS 1 GM/50 ML IVPB IV SCH (09:46)
[2016-08-11] MEDS: DEXILANT PO SCH (09:46)
[2016-08-11] MEDS: CATAPRES PO SCH (09:46)
[2016-08-11] MEDS: ARIMIDEX PO SCH (09:46)
[2016-08-11] MEDS: COZAAR PO SCH ×2 (09:46→20:07)
[2016-08-11] MEDS: COREG PO SCH ×2 (09:47→20:07)
[2016-08-11] MEDS: LOTRISONE CREAM TOP SCH (10:00)
--- NOTE | 2016-08-11 11:38 | PROGRESS NOTE ---
DATE: 08/11/2016 SUBJECTIVE: The patient cannot respond with communication to me. She mumbles. Her dementia is fairly severe. She came in with a UTI and worsening mental state. Her mental state has not really improved much. She was actually getting better with this prior to the UTI. OBJECTIVE: Vital signs show blood pressure 124/100, respirations 15, temperature is 99.2 degrees Fahrenheit. This is actually vital signs in the chart for yesterday, and there are not any in the chart at this time for today. We will get those in the chart. HEENT: She is normocephalic. The patient does arouse but cannot communicate. Neck supple. Lungs clear to auscultation and percussion without rhonchi, rales, or wheezes. Heart: Regular rate and rhythm without murmurs, gallops, or friction rubs. Abdomen soft. Active bowel sounds. No organomegaly or tenderness. Neurologic: The patient is very confused. She is moving all extremities. She still has a low- grade temperature of 99.2 degrees Fahrenheit. ASSESSMENT: 1. Altered mental status with dementia. 2. Urinary tract infection. PLAN: We will repeat urinalysis. cc: MD Rafy Livingston Jr, MD
[2016-08-11 14:32] LABS: URINE CULTURE NEEDED? NO; URINE SOURCE CATH
[2016-08-11 14:33] LABS: BILIRUBIN URINE NEGATIVE (NEGATIVE); BLOOD URINE NEGATIVE (NEGATIVE); COLOR YELLOW; GLUCOSE URINE NEGATIVE (NEGATIVE); LEUKOCYTES URINE NEGATIVE (NEGATIVE); NITRITE URINE NEGATIVE (NEGATIVE); PROTEIN URINE NEGATIVE (NEGATIVE); SP GRAVITY URINE 1.004; TURBIDITY URINE CLEAR (CLEAR); UROBILINOGEN URINE NORMAL (NORMAL)
[2016-08-11 14:35] LABS: URINE MICRO REVIEW NEEDED? YES
[2016-08-11 14:37] LABS: UR EPITHELIAL CELLS <10 /HPF (<10); URINE BACTERIA NEGATIVE /HPF; URINE RBC <10 /HPF (<10); URINE WBC <10 /HPF (<10)
[2016-08-11] MEDS: LOVENOX SUBQ SCH (20:06)
[2016-08-12] MEDS: D5 1/2 NS + KCL 10 MEQ 1,000 ML IV SCH ×3 (06:29→19:25)
[2016-08-12 07:21] LABS: AGAP 9; BUN 3 mg/dL (8-22); CALCIUM 7.6 mg/dL (8.8-10.2); CHLORIDE 103 mmol/L (98-107); COSMO 278; POTASSIUM 3.4 mmol/L (3.5-5.1); SODIUM 141 mmol/L (136-145); TCO2 29 mmol/L (25-35)
[2016-08-12] MEDS: COZAAR PO SCH ×2 (08:29→21:26)
[2016-08-12] MEDS: CATAPRES PO SCH (08:30)
[2016-08-12] MEDS: LOTRISONE CREAM TOP SCH (08:30)
[2016-08-12] MEDS: DEXILANT PO SCH (08:30)
[2016-08-12] MEDS: ARIMIDEX PO SCH (08:30)
[2016-08-12] MEDS: COREG PO SCH ×2 (08:30→21:26)
[2016-08-12] MEDS: INVANZ 1 GM/NS 1 GM/50 ML IVPB IV SCH (11:21)
--- NOTE | 2016-08-12 11:40 | PROGRESS NOTE ---
DATE: 08/12/2016 SUBJECTIVE: The patient is not communicative. Family says ever since she had some Dilaudid she has not been able to talk. This was a few days ago. Dementia has been getting worse for some time. We are concern about a urinary tract infection as well so I repeated urinalysis and it is normal now. OBJECTIVE: Vital Signs: Blood pressure 149/94, respirations 18, pulse 75, temperature 98.5 degrees. HEENT: She is normocephalic. Lungs: Clear to auscultation and percussion without rhonchi, rales, or wheezes. Heart: Regular rate and rhythm without murmurs, gallops, or friction rubs. Abdomen: Soft. Active bowel sounds. No organomegaly or tenderness. Neurological: Patient arouses to painful stimuli. Moves all 4 extremities. She does not try to talk much today at all, just falls right back off to sleep. ASSESSMENT: 1. Encephalopathy with altered mental status. 2. Urinary tract infection resolved. PLAN: Continue care. cc: MD Rafy Livingston Jr, MD
[2016-08-12] MEDS: ATIVAN IV PRN (21:26)
[2016-08-12] MEDS: LOVENOX SUBQ SCH (21:26)
[2016-08-13 06:21] LABS: AGAP 12; BUN 3 mg/dL (8-22); CALCIUM 7.5 mg/dL (8.8-10.2); CHLORIDE 101 mmol/L (98-107); COSMO 279; POTASSIUM 3.4 mmol/L (3.5-5.1); SODIUM 142 mmol/L (136-145); TCO2 29 mmol/L (25-35)
[2016-08-13] MEDS: COREG PO SCH ×2 (08:38→19:56)
[2016-08-13] MEDS: CATAPRES PO SCH (08:38)
[2016-08-13] MEDS: LOTRISONE CREAM TOP SCH (08:38)
[2016-08-13] MEDS: D5 1/2 NS + KCL 10 MEQ 1,000 ML IV SCH ×2 (08:38→18:22)
[2016-08-13] MEDS: ARIMIDEX PO SCH (08:38)
[2016-08-13] MEDS: DEXILANT PO SCH (08:38)
[2016-08-13] MEDS: COZAAR PO SCH ×2 (08:38→19:56)
[2016-08-13] MEDS: INVANZ 1 GM/NS 1 GM/50 ML IVPB IV SCH (10:16)
[2016-08-13] MEDS: LOVENOX SUBQ SCH (19:56)
[2016-08-13] MEDS: GEODON IM PRN (19:57)
--- NOTE | 2016-08-13 21:33 | PROGRESS NOTE ---
DATE: 08/13/2016 SUBJECTIVE: Interval history was reviewed for the last 72 hours. The patient remains confused, not able to follow with verbal commands. She is awake and babbling, and holding the hand loom blower. REVIEW OF SYSTEMS: None reported other than confusion. History is not reliable. PHYSICAL EXAMINATION: Vital Signs: Stable on oxygen 2 L. HEENT Examination: Within normal limits. Neck: Supple. Chest: Clear to auscultation. Heart: Sounds are regular. Abdomen: Belly is soft, nontender, good bowel sounds. Extremities: No obvious deficits noted. Able to move all the extremities. LABS: SMA 7, sodium 142, potassium 3.4, chloride 101, BUN 3, creatinine 0.6. Urinalysis is clear. Urine cultures: E coli. ASSESSMENT AND PLAN: 1. Altered mental status due to underlying dementia with agitation. No significant improvement. We will continue the use of Seroquel at bedtime. 2. Dehydration, improving hypokalemia. Replace potassium. 3. E. coli with ESBL positive. IV Invanz. DISPOSITION: Discussed with patient's family members about Living Will, advanced directives, possible hospice. Family decided there is no help at home. Consider rehabilitation placement. We will refer for [employer] consultation. LEVEL OF DOCUMENTATION: 35 minutes. cc: Rafy Herrera MD MTDD
[2016-08-13] MEDS: ATIVAN IV PRN (23:22)
[2016-08-14] MEDS: COREG PO SCH ×2 (00:58→09:16)
[2016-08-14] MEDS: LOVENOX SUBQ SCH (00:59)
[2016-08-14] MEDS: D5 1/2 NS + KCL 10 MEQ 1,000 ML IV SCH ×2 (00:59→11:05)
[2016-08-14] MEDS: COZAAR PO SCH ×2 (00:59→09:16)
[2016-08-14 06:37] LABS: AGAP 12; BUN 4 mg/dL (8-22); CALCIUM 7.5 mg/dL (8.8-10.2); CHLORIDE 100 mmol/L (98-107); COSMO 276; POTASSIUM 3.2 mmol/L (3.5-5.1); SODIUM 140 mmol/L (136-145); TCO2 28 mmol/L (25-35)
[2016-08-14] MEDS: ATIVAN IV PRN (09:12)
[2016-08-14] MEDS: INVANZ 1 GM/NS 1 GM/50 ML IVPB IV SCH (09:13)
[2016-08-14] MEDS: ARIMIDEX PO SCH (09:15)
[2016-08-14] MEDS: LOTRISONE CREAM TOP SCH (09:16)
[2016-08-14] MEDS: DEXILANT PO SCH (09:16)
[2016-08-14] MEDS: CATAPRES PO SCH (09:16)
--- NOTE | 2016-08-14 09:22 | DISCHARGE SUMMARY ---
ADMISSION DATE: 08/02/2016 DISCHARGE DATE: 08/14/2016 DISCHARGING DIAGNOSES: 1. Altered mental status due to metabolic encephalopathy, underlying dementia. 2. Dementia with agitation. 3. Stage 1 breast cancer in the left breast. 4. C2 closed fracture. 5. Esophageal reflux disease. 6. Hyperlipidemia. 7. Hypertension. 8. Osteoporosis. 9. Vitamin B12 deficiency. 10. Urinary tract infection with extended spectrum beta-lactamase positive. BRIEF HISTORY: Please see the H and P that was done on 08/02/2016. In brief, she is an 85-year-old white female, who was admitted to the hospital with altered mental status, agitation, dehydration, acute kidney injury, and UTI. Apparently, the patient had been in her usual state of health until the change of the pain medications. HOSPITAL COURSE: 1. Dehydration due to prerenal azotemia. Perry catheter was placed. She was given IV hydration. Follow-up renal function test came back normal. 2. Hypokalemia. Replaced the electrolytes. 3. Escherichia coli extended spectrum beta-lactamase positive and patient was given IV Invanz and changed to the Macrobid. 4. Despite correction of the metabolic abnormalities, the patient continues to have dementia with agitation. Not able to follow verbal commands, babbling. Dilaudid was stopped. The patient was given only Geodon or Seroquel as needed for agitation. She was sitting out of the bed without much interaction. DISPOSITION: I had a long discussion with the patient's and the family members. At this juncture, the family decided to go for rehab with possible hospice if no improvement. ADVANCED DIRECTIVES: Discussed Living Will, DNR. LABORATORY DATA: At the time of discharge, CBC white cell count 7, hematocrit 30, platelets 184,000. SMA-7: Sodium 140, potassium 3.2, chloride 100. BUN 12, creatinine 0.6, calcium 7.5. Urine culture positive for ESBL. RADIOLOGY PROCEDURES: Chest x-ray 08/02/2016: No active disease. CT head: Chronic ischemic changes. Ultrasound: No hydronephrosis. Bilateral simple renal cysts. DISCHARGE INSTRUCTIONS: 1. Oxygen 1 L as needed. 2. Care of the skin, bladder, and bowels. 3. Perry catheter as needed if postvoid residual volume more than 100. 4. Physical therapy. 5. Living will, DNR. DISCHARGE MEDICATIONS: 1. Remedex 1 mg daily. 2. Coreg 3.125 p.o. b.i.d. 3. Losartan 50 p.o. b.i.d.; hold the blood pressure medicine if systolic blood pressure less than 100 and heart rate is less than 60. 4. Macrobid 100 p.o. b.i.d. 5. Seroquel 25 mg daily. 6. Prilosec 20 mg daily. Prognosis is poor. If no improvement, consider palliative care with hospice with [facility]. cc: Rafy Herrera MD
[2016-08-14] MEDS: GEODON IM PRN (11:01)
[2016-08-14 14:33] VITALS: BP 137/69
== END 2016-08-14 17:29 ==
LOC: ED 09:11 → EDIPHOLD 11:53 → 3N 13:50
PROVIDERS: ADMIT Internal Medicine; ATTEND Internal Medicine